=== PATIENT | male | born 1995 | race Caucasian/White ===

== ENCOUNTER 2019-12-13 22:16 | Emergency (ER) | payer OTHER ==
[~2019-12-13] VITALS: Ht 185.4 cm; Wt 97.7 kg
[2019-12-13 22:23] VITALS: BP 150/67; TEMP 98.6
[2019-12-14 00:48] VITALS: PULSE 77
== END 2019-12-14 00:48 | disposition home or self-care (01) ==
LOC: COL.ER 22:16
DX: S61.011A Laceration without foreign body of right thumb without damage to nail, initial encounter (principal); Z88.5 Allergy status to narcotic agent; W26.0XXA Contact with knife, initial encounter; Y92.009 Unspecified place in unspecified non-institutional (private) residence as the place of occurrence of the external cause